=== PATIENT | female | born 1990 | race Caucasian/White ===

== ENCOUNTER 2017-06-25 12:55 | Emergency (ER) | payer MEDICAID ==
[~2017-06-25] VITALS: Ht 162.6 cm; Wt 56.8 kg
[2017-06-25 14:00] LABS: MICROSCOPIC INDICATED
[2017-06-25 14:04] LABS: CULTURE INDICATED? YES
[2017-06-25 14:16] LABS: BASOPHILS # (AUTO) 0.02 x10^3/uL (0-0.1); BASOPHILS % (AUTO) 1 % (0-1); EOSINOPHILS # (AUTO) 0.05 x10^3/uL (0-0.4); EOSINOPHILS % (AUTO) 1 % (1-7); LYMPHOCYTES # (AUTO) 0.42 x10^3/uL (1-3.4); LYMPHOCYTES % (AUTO) 9 % (22-44); MD NO; MEAN CORPUSCULAR HEMOGLOBIN 29.5 pg (27.0-34.8); MEAN CORPUSCULAR HGB CONC 33.6 g/dL (32.4-35.8); MEAN PLATELET VOLUME 8.8 fL (7.4-10.4); MONOCYTES # (AUTO) 0.73 x10^3/uL (0.2-0.8); MONOCYTES % (AUTO) 15 % (2-9); NEUTROPHILS # (AUTO) 3.57 x10^3/uL (1.8-6.8); NEUTROPHILS % (AUTO) 75 % (42-75); PLATELET COUNT 221 x10^3/uL (130-400); RED BLOOD COUNT 4.95 x10^6/uL (3.82-5.3)
[2017-06-25 14:28] LABS: ALANINE AMINOTRANSFERASE 24 U/L (12-78); ALBUMIN 4.2 g/dL (3.4-5.0); ANION GAP 5 mmol/L (5-15); CALCIUM 9.1 mg/dL (8.5-10.1); CHLORIDE 105 mmol/L (98-107)
[2017-06-25 14:30] LABS: ALKALINE PHOSPHATASE 59 U/L (45-117); BILIRUBIN,TOTAL 0.6 mg/dL (0.2-1.0); TOTAL PROTEIN 8.6 g/dL (6.4-8.2)
[2017-06-25 16:33] VITALS: BP 104/63
== END 2017-06-25 16:35 | disposition home or self-care (01) ==
LOC: ED 16:29
DX: R10.84 Generalized abdominal pain (principal); R31.0 Gross hematuria
CPT/HCPCS: 36415; 74176; 80053; 81001; 81025; 85025; 87086; 99285